=== PATIENT | male | born 1945 | race Caucasian/White ===

== ENCOUNTER 2021-05-08 12:54 | Outpatient (CLI) | payer MEDICARE, BC ==
[~2021-05-08 12:54] MED LIST: ASPI-612 PO; CHOL100046 PO; FOLI1TAB27 PO; LORA-512 PO; MULT1TAB71 PO; NITR0.4T51 SL; OMEP40CA21 PO; THIA250T9 PO
[2021-05-08] MEDS ORDERED: BARIUM SULFATE 340 ML SUSP.RECON***PROCEDURE AREA ONLY**DONT ENTER PO ONE (13:00)
== END 2021-05-08 23:59 | disposition home or self-care (01) ==
LOC: RAD 12:54
PROVIDERS: ATTEND Family Medicine
DX: K21.9 Gastro-esophageal reflux disease without esophagitis (principal); R13.12 Dysphagia, oropharyngeal phase; R47.1 Dysarthria and anarthria; R49.0 Dysphonia
CPT/HCPCS: 74230

== ENCOUNTER 2021-11-03 10:09 | Emergency (ER) | payer MEDICARE, BC ==
[~2021-11-03] VITALS: Ht 177.8 cm; Wt 78.2 kg
[2021-11-03 11:36] LABS: ALBUMIN 3.7 G/DL (3.4-5.0); ALBUMIN/GLOBULIN RATIO 1.1 (1.1-1.5); ALKALINE PHOSPHATASE 86 IU/L (46-116); ANION GAP 4 (8-16); ASPARTATE AMINO TRANSFERASE 11 U/L (10-37); BILIRUBIN,TOTAL 0.4 MG/DL (0.1-1.0); BLOOD UREA NITROGEN 19 MG/DL (7-18); BUN/CREATININE RATIO 21.1 (5.4-32.0); CALCIUM 8.6 MG/DL (8.5-10.1); CHLORIDE 107 MMOL/L (99-107); GLUCOSE 97 MG/DL (70-104); POTASSIUM 4.2 MMOL/L (3.5-5.1); SODIUM 144 MMOL/L (135-145); TOTAL CARBON DIOXIDE 32.6 MMOL/L (24-32); eGFR 82 ML/MIN
[2021-11-03 11:37] LABS: ALANINE AMINOTRANSFERASE < 6 U/L (12-78); BASOPHILS % (AUTO) 0.6 % (0-1); EOSINOPHILS % (AUTO) 0.7 % (0-6); HEMATOCRIT 42.9 % (42.0-52.0); HEMOGLOBIN 14.7 g/dl (14.0-17.9); LYMPHOCYTES # (AUTO) 1.3 X10'3 (1.1-4.8); LYMPHOCYTES % (AUTO) 18.2 % (21-51); MEAN CORPUSCULAR HEMOGLOBIN 31.5 PG (27.0-31.0); MEAN CORPUSCULAR HGB CONC 34.4 g/dL (33.0-36.5); MEAN CORPUSCULAR VOLUME 91.6 FL (78-98); MEAN PLATELET VOLUME 8.8 FL (7.4-10.4); MONOCYTES # (AUTO) 0.4 X10'3 (0-0.9); MONOCYTES % (AUTO) 5.8 % (2-12); NEUTROPHILS # (AUTO) 5.4 X10'3 (1.8-7.7); NEUTROPHILS % (AUTO) 74.7 % (42-75); PLATELET COUNT 216 X10'3 (140-440); RED BLOOD COUNT 4.68 X10'6 (4.70-6.10); RED CELL DISTRIBUTION WIDTH 13.2 % (11.5-14.5); WHITE BLOOD COUNT 7.3 X10'3 (4.5-11.0)
[2021-11-03 13:50] VITALS: BP 188/90
== END 2021-11-03 13:51 | disposition home or self-care (01) ==
LOC: ER 10:10
DX: R07.89 Other chest pain (principal); I10 Essential (primary) hypertension; K21.9 Gastro-esophageal reflux disease without esophagitis; F41.9 Anxiety disorder, unspecified; Z95.1 Presence of aortocoronary bypass graft; Z88.8 Allergy status to other drugs, medicaments and biological substances; Z79.82 Long term (current) use of aspirin; Z79.899 Other long term (current) drug therapy
CPT/HCPCS: 36415; 71045; 80053; 83880; 84484; 85025; 93005; 99285

== ENCOUNTER 2024-09-03 09:16 | Emergency (ER) | payer MEDICARE, BC ==
[~2024-09-03] VITALS: Ht 177.8 cm; Wt 74.0 kg
--- NOTE | 2024-09-03 09:25 | Physician Documentation ---
History of Present Illness ~ Stated Complaint: LOW 02 Time Seen by MD: 09:35 HPI 79 y/o male with Parkinsons c/o "I have a little bit of everything." He reports he feels dizzy "a little short of breath." reports "his speech is a little muffled." Symptoms have been gradual in onset over months. This morning his checked his oxygen levels and noted that he fluctuated between low 80's and low 90's. He denies chest pain, abdominal pain, fevers, N/V/D today. He does have a history of dementia and is confused frequently per his . Medication Reconciliation Allergies: Coded Allergies: No Known Allergies (Unverified , 09/03/24) Scheduled Aspirin (Aspir 81), 81 MG PO DAILY, (Reported) Folic Acid* (Folic Acid*), 1 TAB PO DAILY, (Reported) Loratadine* (Alavert*), 1 TAB PO DAILY, (Reported) Multivitamin (Daily [place]), 1 TAB PO DAILY, (Reported) Omeprazole (Prilosec), 1 CAP PO QAM, (Reported) Thiamine HCl (Vitamin B-1), 125 MG PO DAILY, (Reported) Scheduled PRN Nitroglycerin SL* (Nitrostat SL*), 1 TAB SL Q5MIN PRN for Chest pain Q5min PRNx3-call MD, (Reported) Miscellaneous Medications Cholecalciferol (Vitamin D), 2,000 UNIT PO, (Reported) Past Medical History Past Medical History: Hypertension, GERD, Anxiety Past Surgical History: noncontributory Patient History: (CABG) Coronary artery bypass grafting FATHER, , Age: 76, Cause: Failure to thrive (DM Type 2) Diabetes mellitus type 2 MOTHER, , Age: 83, Cause: CHF (congestive heart failure) FH: lymphoma FATHER, , Age: 76, Cause: Failure to thrive FH: uterine cancer MOTHER, , Age: 83, Cause: CHF (congestive heart failure) Alcohol Use: None Drug Use: none Lives with: Spouse Lives In: Home Occupation: retired Review of Systems All Other Systems at this time: Reviewed and Negative Physical Exam Physical Exam HEENT: PERRL, moist oral mucosa, EOMI Pulmonary: No respiratory distress Cardiac: RRR, no murmur, rub or gallop GI: nondistended, soft, nontender, no guarding, no rebound MSK: no deformity Skin: w/d/i, no rash Neuro: alert, nonfocal; occasionally confused Psych: normal affect Progress Results/Orders Results/Orders Orders - ARACELIS TADEO MD Chest,Single View (09/03/24 09:23) Monitor (09/03/24 09:23) Saline Lock (09/03/24 09:23) Oxygen (09/03/24 09:23) Hs Troponin I W Calculations (09/03/24 11:23) Hs Troponin I W Calculations (09/03/24 12:23) Completed Orders - ARACELIS TADEO MD Chest,Single View (09/03/24 09:23) Cbc/Diff (09/03/24 09:23) BMP (09/03/24 09:23) PBNP (09/03/24 09:23) Electrocardiogram (09/03/24 09:23) Hs Troponin I W Calculations (09/03/24 09:23) Urinalysis, Cult If Indicated (09/03/24 10:08) Vital Signs 09/03/24 09/03/24 09/03/24 09:21 09:37 11:14 Temp 98.5 Pulse 83 63 Resp 18 16 17 B/P (MAP) 141/76 169/79 (109) Pulse Ox 94 95 O2 Flow Rate 0 0 Laboratory Tests Test 09/03/24 09:35 09/03/24 10:05 09/03/24 11:08 White Blood Count 6.2 Red Blood Count 4.47 L Hemoglobin 13.3 L Hematocrit 40.0 L Mean Corpuscular Volume 89.5 Mean Corpuscular Hemoglobin 29.8 Mean Corpuscular Hemoglobin Concent 33.3 Red Cell Distribution Width 13.0 Platelet Count 260 Mean Platelet Volume 8.3 Neutrophils (%) (Auto) 63.7 Lymphocytes (%) (Auto) 25.3 Monocytes (%) (Auto) 8.0 Eosinophils (%) (Auto) 2.0 Basophils (%) (Auto) 1.0 Neutrophils # (Auto) 3.9 Lymphocytes # (Auto) 1.6 Monocytes # (Auto) 0.5 Eosinophils # (Auto) 0.1 Basophils # (Auto) 0.1 CBC Comment Sodium Level 142 Potassium Level 3.9 Chloride Level 105 Carbon Dioxide Level 30.3 Anion Gap 7 L Blood Urea Nitrogen 22 H Creatinine 1.01 Estimated GFR/1.73 m2 72 BUN/Creatinine Ratio 21.8 H Glucose Level 100 Calcium Level 8.8 Troponin I High Sensitivity 5 Pro-B-Type Natriuretic Peptide 112 Albumin 3.6 Chemistry Comments Urine Specimen Description Cln catch midstream Urine Color Yellow Urine Clarity Clear Urine pH 6.0 Urine Specific [place] 1.015 Urine Protein Negative Urine Glucose (UA) Negative Urine Ketones Trace H Urine Occult Blood Negative Urine Nitrite Negative Urine Bilirubin Negative Urine Urobilinogen 0.2 Urine Leukocyte Esterase Negative Urine Culture Indicated Not ind Volume Urine Centrifuged 10 ml Urine Comment Medical Decision Making Findings 79 year old male with nonspecific complaints, exam and vitals unremarkable. CXR interpreted by me demonstrates normal contours, no infiltrate, no cardiomegaly, no acute findings. EKG interpreted by me demonstrates normal sinus rhythm, R BBB, no STEMI criteria. Offered admission for further inpatient workup and patient/ adamantly refused despite thorough discussion of risks/benefits. Differential Dx:Considerations: Include: anemia, dehydration, electrolyte imbalance, encephalopathy, hypoglycemia, hypotension, myocardial infarction, renal failure Additional Information ddx includes UTI. adamantly refused admission Departure Disposition: 01 HOME / SELF CARE / HOMELESS Impression: Primary Impression: Dizziness Condition: Stable Discharge Instructions: Dizziness Referrals: NO PRIMARY CARE PROVIDER (PCP) Education Educated: Patient, Family Educated regarding: diagnosis, treatment, prognosis, need for follow up Additional Comment Medical Screen Exam 79 y/o male with Parkinsons c/o "I have a little bit of everything." He reports he feels dizzy "a little short of breath." reports "his speech is a little muffled." Symptoms have been gradual in onset over months. Nontoxic appearing, respiratory rate normal, speaking in complete sentences. Appears stable for lobby while waiting for room. Cardiac labs ordered. The screening exam note accurately reflects work and decisions made by me.Madison HALE 09/03/24 09:25 Signature Scribe Signature: . Attestation: MADISON DELGADILLO Sep 03, 2024 09:25 ARACELIS TADEO MD Sep 03, 2024 11:18
--- NOTE | 2024-09-03 09:33 | ELECTROCARDIOGRAPH REPORT ---
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 Laci Adam Measurements Intervals [place] Rate: 70 P: 57 [place]: 174 QRS: 4 QRSD: 144 T: 47 QT: 423 QTc: 457 Interpretive Statements Sinus rhythm Right bundle branch block Electronically Signed On 09-03-2024 18:47:[address] Laci Adam Please click the below link to view image of tracing.
[2024-09-03 10:10] LABS: BASOPHILS # (AUTO) 0.1 X10'3 (0-0.2); EOSINOPHILS # (AUTO) 0.1 X10'3 (0-0.9); HEMOGLOBIN 13.3 g/dl (14.0-17.9); LYMPHOCYTES # (AUTO) 1.6 X10'3 (1.1-4.8); LYMPHOCYTES % (AUTO) 25.3 % (21-51); MEAN CORPUSCULAR HEMOGLOBIN 29.8 PG (27.0-31.0); MEAN CORPUSCULAR HGB CONC 33.3 g/dL (33.0-36.5); MEAN CORPUSCULAR VOLUME 89.5 FL (78-98); MEAN PLATELET VOLUME 8.3 FL (7.4-10.4); MONOCYTES # (AUTO) 0.5 X10'3 (0-0.9); NEUTROPHILS # (AUTO) 3.9 X10'3 (1.8-7.7); NEUTROPHILS % (AUTO) 63.7 % (42-75); PLATELET COUNT 260 X10'3 (140-440); RED BLOOD COUNT 4.47 X10'6 (4.70-6.10); WHITE BLOOD COUNT 6.2 X10'3 (4.5-11.0)
--- NOTE | 2024-09-03 10:15 | RADIOLOGY REPORT ---
DI CHEST,SINGLE VIEW, HISTORY: CP COMPARISON: CHEST,SINGLE VIEW on DOS: 11/03/21 CHEST,SINGLE VIEW on DOS: 11/03/21 TECHNICAL DATA: 1 view of the chest was obtained. FINDINGS: Lines and tubes: None Cardiomediastinal silhouette: normal Pulmonary vasculature: normal Lung expansion: normal Lung airspace: normal Lung interstitium: normal Pleura: normal Pneumothorax: no Bones: Unremarkable Other: no IMPRESSION: No acute intrathoracic abnormality.
[2024-09-03 10:32] LABS: ALBUMIN 3.6 G/DL (3.4-5.0); ANION GAP 7 (8-16); BLOOD UREA NITROGEN 22 MG/DL (7-18); BUN/CREATININE RATIO 21.8 (10.0-20.0); CALCIUM 8.8 MG/DL (8.5-10.1); CHLORIDE 105 MMOL/L (99-107); CREATININE 1.01 MG/DL (0.60-1.10); GLUCOSE 100 MG/DL (70-104); POTASSIUM 3.9 MMOL/L (3.5-5.1); PRO BRAIN NATRIURETIC PEPTIDE 112 PG/ML (0-450); SODIUM 142 MMOL/L (135-145); TOTAL CARBON DIOXIDE 30.3 MMOL/L (24-32); eCRCL 63 ML/MIN; eGFR 72 ML/MIN
[2024-09-03 10:34] LABS: BILIRUBIN,URINE NEGATIVE (Neg); CLARITY,URINE CLEAR (Clear); COLOR,URINE YELLOW (Yellow); GLUCOSE, URINE NEGATIVE (Neg); KETONES,URINE TRACE mg/dl (Neg); LEUKOCYTE ESTERASE ,URINE NEGATIVE (Neg); NITRITES, URINE NEGATIVE (Neg); OCCULT BLOOD,URINE NEGATIVE (Neg); PROTEIN,URINE NEGATIVE (Neg); UROBILINOGEN,URINE 0.2 E.U/dL (0.2-1.0)
[2024-09-03 10:35] LABS: UA COLLECTION TYPE CLN CATCH MIDSTREAM
[2024-09-03 11:42] VITALS: BP 165/62; PULSE 63; RESP 15; TEMP 98; O2SAT 95
== END 2024-09-03 11:44 | disposition home or self-care (01) ==
LOC: ER 09:16
DX: R42 Dizziness and giddiness (principal); R06.02 Shortness of breath; I10 Essential (primary) hypertension; K21.9 Gastro-esophageal reflux disease without esophagitis; F41.9 Anxiety disorder, unspecified; E11.9 Type 2 diabetes mellitus without complications; F02.80 Dementia in other diseases classified elsewhere, unspecified severity, without behavioral disturbance, psychotic disturbance, mood disturbance, and anxiety; G20.A1 Parkinson's disease without dyskinesia, without mention of fluctuations; Z79.82 Long term (current) use of aspirin
CPT/HCPCS: 36415; 71045; 80048; 81003; 83880; 84484; 85025; 93005; 99285